=== PATIENT | male | born 1955 | race Hispanic/Latino ===

== ENCOUNTER 2020-09-29 10:03 | Outpatient (CLI) | payer MEDICARE, SELFPAY | END 2020-09-29 10:04 | disposition home or self-care (01) | LOC: ANHCOVIDVC 10:04 | PROVIDERS: PCP Internal Medicine | DX: Z23 Encounter for immunization (principal) | CPT/HCPCS: 0001A; 91300 ==

== ENCOUNTER 2020-10-20 10:02 | Outpatient (CLI) | payer MEDICARE, SELFPAY | END 2020-10-20 10:03 | disposition home or self-care (01) | LOC: ANHCOVIDVC 10:02 | PROVIDERS: PCP Internal Medicine | DX: Z23 Encounter for immunization (principal) | CPT/HCPCS: 0002A; 91300 ==